=== PATIENT | male | born 1985 | race Caucasian/White ===

== ENCOUNTER 2017-12-05 08:32 | Outpatient (CLI) | payer BC ==
[2017-12-05] MEDS ORDERED: Iopamidol 370 76% 100 ML VIAL ONE (11:47)
== END 2017-12-05 08:33 | disposition home or self-care (01) ==
LOC: BICCT 08:32
PROVIDERS: ATTEND Urology
DX: Z08 Encounter for follow-up examination after completed treatment for malignant neoplasm (principal); Z85.528 Personal history of other malignant neoplasm of kidney
CPT/HCPCS: 71046; 74170